=== PATIENT | male | born 1955 | race Caucasian/White ===

== ENCOUNTER 2016-12-14 11:43 | Inpatient (IN) | payer OTHER ==
[2016-12-14] VITALS (357 sets, daily range): BP systolic 157–174; BP diastolic 104–110; PULSE 77–93; TEMP 97.7–98.4; O2SAT 86–98
[~2016-12-14] VITALS: Ht 167.6 cm; Wt 60.2 kg
[~2016-12-14 11:43] MED LIST: ALEVE PO; BACTRIM DS 8001 TAB PO; BENADRYL25 M2 PO; BENADRYL25 MG PO; LEVAQUIN 5500 MG/TA1 PO; LIPITOR40 MG PO; NAPROSYN 2250 MG/TAB PO; NORCO 325 MG-51 TAB PO; NORCO 325 MG-7.1 TAB PO; PERCOCET 5/321 UDTAB PO; PREDNISONE10 MG PO; PRIL40 PO; TRAMADOL50 MG PO; ULTRAM 50MG TAB50 MG PO; VALIUM 5MG T5 MG/TAB PO; VITAMIN C500 MG PO
[2016-12-14 11:57] LABS: BASO # 0.1 (0.0-0.2); BASO % 0.8 % (0.0-2.0); EOS # 0.8 (0.0-0.7); EOS % 9.5 % (0-4.0); GRAN # 5.3 (1.4-6.5); GRAN % 62.4 % (42.2-75.2); HEMATOCRIT 45.6 % (42.0-52.0); LYMPH # 1.4 (1.2-3.4); LYMPH % 16.3 % (20.0-51.0); MEAN CELL VOLUME 95 fl (80.0-100.0); MEAN CORPUSCULAR HEMOGLOBIN 31 pg (27.0-31.0); MEAN CORPUSCULAR HGB CONC 33 g/dl (33.0-37.0); MEAN PLATELET VOLUME 9.3 fl (7.4-10.4); MONO # 0.9 (0.1-0.6); MONO % 10.8 % (1.7-9.3); PLATELET COUNT 250 K/mm3 (130-400); RED BLOOD COUNT 4.81 M/mm3 (4.20-5.60); REDCELL DISTRIBUTION WIDTH-CV 13.5 % (11.5-14.5); WHITE BLOOD COUNT 8.5 K/mm3 (4.8-10.8)
[2016-12-14 12:01] LABS: INR 1.1 (0.8-3.0); PROTHROMBIN TIME 12.2 SECONDS (9.7-12.8)
[2016-12-14 12:23] LABS: ADJUSTED CALCIUM 9.5 mg/dL (8.4-10.2); ALBUMIN 3.8 gm/dL (3.5-5.0); BILIRUBIN,TOTAL 0.9 mg/dL (0.0-1.0); C-REACTIVE PROTEIN 0.8 mg/dL (0.0-0.9); CALCIUM 9.3 mg/dL (8.4-10.2); CREATININE, serum 1.78 mg/dL (0.66-1.25); POTASSIUM 4.4 mmol/L (3.4-5.0); TOTAL PROTEIN 7.1 gm/dL (6.4-8.2)
[2016-12-14] MEDS ORDERED: ALEVE 220MG220 MG PO ×2 (13:34→18:21)
[2016-12-14] MEDS ORDERED: BENADRYL25 M2 PO ×2 (13:34→18:22)
[2016-12-14] MEDS ORDERED: VITAMIN C500 MG PO (13:35)
[2016-12-14] MEDS ORDERED: PRILOSEC10 MG PO (13:36)
[2016-12-14] MEDS ORDERED: [UNRECOGNIZED DRUG - OTHER] PO (17:34)
[2016-12-14] MEDS ORDERED: PRILOSEC 20MG20 MG PO (17:36)
[2016-12-14] MEDS ORDERED: [UNRECOGNIZED DRUG - OTHER] PO (17:36)
[2016-12-14] MEDS ORDERED: CEPHALEXIN500 M1 PO (17:40)
[2016-12-14] MEDS ORDERED: NORCO 325 MG-7.1 TAB PO (17:43)
[2016-12-14] MEDS ORDERED: PREDNISONE20 MG PO (17:45)
[2016-12-14] MEDS ORDERED: ULTRAM 50MG TAB50 MG PO (18:19)
[2016-12-14] MEDS ORDERED: [UNRECOGNIZED DRUG - REMARK] (18:28)
[2016-12-14 19:58] LABS: PH 5 (5-8); SQUAMOUS EPITHELIAL None Seen /hpf; URINE APPEARANCE Clear; URINE BACTERIA None Seen /hpf; URINE BILIRUBIN Negative (NEGATIVE); URINE BLOOD Negative (NEGATIVE); URINE COLOR Yellow; URINE GLUCOSE Negative (NEGATIVE); URINE KETONE Negative (NEGATIVE); URINE RBC 0-2 /hpf; URINE UROBILINOGEN Negative (NEGATIVE)
[2016-12-15] VITALS (24 sets, daily range): BP systolic 131–168; BP diastolic 79–115; PULSE 65–84; TEMP 97.6–98.2; O2SAT 93–99
[2016-12-15 05:55] LABS: HEMATOCRIT 42.3 % (42.0-52.0); HEMOGLOBIN 13.8 g/dl (13.5-18.0); MEAN CELL VOLUME 96 fl (80.0-100.0); MEAN CORPUSCULAR HEMOGLOBIN 31 pg (27.0-31.0); MEAN CORPUSCULAR HGB CONC 33 g/dl (33.0-37.0); MEAN PLATELET VOLUME 9.6 fl (7.4-10.4); PLATELET COUNT 237 K/mm3 (130-400); RED BLOOD COUNT 4.41 M/mm3 (4.20-5.60); REDCELL DISTRIBUTION WIDTH-CV 13.4 % (11.5-14.5); WHITE BLOOD COUNT 9.4 K/mm3 (4.8-10.8)
[2016-12-15 06:10] LABS: CALCIUM 8.7 mg/dL (8.4-10.2); CREATININE, serum 1.49 mg/dL (0.66-1.25)
[2016-12-16 03:39] VITALS: BP 125/69; PULSE 81; TEMP 99
[2016-12-16 07:31] LABS: BASO # 0.1 (0.0-0.2); BASO % 0.9 % (0.0-2.0); EOS # 0.7 (0.0-0.7); EOS % 8.2 % (0-4.0); GRAN # 5.6 (1.4-6.5); GRAN % 68.3 % (42.2-75.2); HEMATOCRIT 43.1 % (42.0-52.0); HEMOGLOBIN 13.9 g/dl (13.5-18.0); LYMPH % 11.7 % (20.0-51.0); MEAN CELL VOLUME 96 fl (80.0-100.0); MEAN CORPUSCULAR HEMOGLOBIN 31 pg (27.0-31.0); MEAN CORPUSCULAR HGB CONC 32 g/dl (33.0-37.0); MEAN PLATELET VOLUME 10.1 fl (7.4-10.4); MONO # 0.9 (0.1-0.6); MONO % 10.7 % (1.7-9.3); PLATELET COUNT 245 K/mm3 (130-400); RED BLOOD COUNT 4.49 M/mm3 (4.20-5.60); REDCELL DISTRIBUTION WIDTH-CV 13.6 % (11.5-14.5); WHITE BLOOD COUNT 8.2 K/mm3 (4.8-10.8)
[2016-12-16 07:39] LABS: CALCIUM 8.9 mg/dL (8.4-10.2); CREATININE, serum 1.65 mg/dL (0.66-1.25); POTASSIUM 3.9 mmol/L (3.4-5.0)
[2016-12-16 07:43] VITALS: BP 137/96; PULSE 77; TEMP 98.2
[2016-12-16 11:18] VITALS: BP 134/88; PULSE 65; TEMP 97.8
[2016-12-16 11:58] VITALS: BP 146/82; PULSE 78; TEMP 98.3
[2016-12-16] MEDS ORDERED: LIPITOR20 MG PO (14:00)
[2016-12-16] MEDS ORDERED: NICODERM C21 MG/PATC TD (14:00)
[2016-12-16] MEDS ORDERED: ZESTRIL2.5 MG PO (14:01)
[2016-12-16] MEDS ORDERED: ASPIRIN 81M81 MG/TA2 PO (14:01)
[2016-12-16] MEDS ORDERED: ULTRAM 50MG TAB50 MG PO (14:02)
[2016-12-16] MEDS ORDERED: TYLENOL 325MG325 MG PO (14:03)
[2016-12-16 16:18] VITALS: BP 152/87; PULSE 83; TEMP 98.5
[2016-12-16 20:05] VITALS: BP 152/85; PULSE 90; TEMP 98.1
[2016-12-17 00:03] VITALS: BP 154/91; PULSE 89; TEMP 98.2
[2016-12-17 02:58] VITALS: BP 137/88; PULSE 77; TEMP 98.3
[2016-12-17 07:24] VITALS: BP 140/79; PULSE 74; TEMP 98.1
[2016-12-17 22:30] LABS: HOMOCYSTEINE 12.5 umol/L (5.5-16.2)
== END 2016-12-17 10:30 | DRG 65 ==
LOC: COL.ER 11:43 → MEDICAL 12:29 → ICU 12:29 → IMCU 22:16 → MEDICAL 12-15 11:07
PROVIDERS: Family Medicine; Internal Medicine; Psychiatry & Neurology Neurology
DX: I63.9 Cerebral infarction, unspecified (principal); G81.91 Hemiplegia, unspecified affecting right dominant side; N17.9 Acute kidney failure, unspecified; I69.322 Dysarthria following cerebral infarction; Z66 Do not resuscitate; I12.9 Hypertensive chronic kidney disease with stage 1 through stage 4 chronic kidney disease, or unspecified chronic kidney disease; N18.3 Chronic kidney disease, stage 3 (moderate); F17.210 Nicotine dependence, cigarettes, uncomplicated; E78.5 Hyperlipidemia, unspecified; Z85.47 Personal history of malignant neoplasm of testis; Z82.3 Family history of stroke; I69.392 Facial weakness following cerebral infarction
CPT/HCPCS: 99223-AI; 99233-AI; J1170; J1644; J7030

== ENCOUNTER 2016-12-16 15:27 | Inpatient (IN) | payer OTHER ==
[~2016-12-16] VITALS: Ht 167.6 cm; Wt 61.6 kg
[~2016-12-16 15:27] MED LIST changes: +ALEVE 220MG220 MG PO; +ASPIRIN 81M81 MG/TA2 PO; +CEPHALEXIN500 M1 PO; +LIPITOR20 MG PO; +NICODERM C21 MG/PATC TD; +PREDNISONE20 MG PO; +PRILOSEC 20MG20 MG PO; +PRILOSEC10 MG PO; +TYLENOL 325MG325 MG PO; +ZESTRIL2.5 MG PO; +[UNRECOGNIZED DRUG - OTHER] PO; +[UNRECOGNIZED DRUG - OTHER] PO; +[UNRECOGNIZED DRUG - REMARK]
[2016-12-17 10:55] VITALS: BP 139/54; PULSE 80; TEMP 99.1
[2016-12-17 18:09] VITALS: BP 137/42; PULSE 55; TEMP 99.3
[2016-12-17 18:11] VITALS: BP 131/74; PULSE 91; TEMP 99.3
[2016-12-18 03:24] VITALS: BP 119/69; PULSE 92; TEMP 98.7
[2016-12-18 11:34] LABS: CALCIUM 9.7 mg/dL (8.4-10.2); CREATININE, serum 2.27 mg/dL (0.66-1.25); POTASSIUM 4.3 mmol/L (3.4-5.0)
[2016-12-18 16:44] VITALS: BP 135/86; PULSE 88; TEMP 99.1
[2016-12-19 03:41] VITALS: BP 138/85; PULSE 94; TEMP 98.6
[2016-12-19 08:55] LABS: CALCIUM 9.1 mg/dL (8.4-10.2); CREATININE, serum 1.99 mg/dL (0.66-1.25); MAGNESIUM 1.8 mg/dL (1.6-2.3); POTASSIUM 4.1 mmol/L (3.4-5.0)
[2016-12-19 18:13] VITALS: BP 157/94; PULSE 81; TEMP 99
[2016-12-19 23:22] VITALS: BP 168/101; PULSE 86
[2016-12-20 03:31] VITALS: BP 152/94; PULSE 86; TEMP 98.6
[2016-12-20 11:49] LABS: CREATININE, serum 1.77 mg/dL (0.66-1.25)
[2016-12-20 16:45] VITALS: BP 160/91; PULSE 82; TEMP 98.5
[2016-12-21 04:37] VITALS: BP 150/92; PULSE 69; TEMP 98.5
[2016-12-21 16:59] VITALS: BP 141/86; PULSE 69; TEMP 97.7
[2016-12-22 04:33] VITALS: BP 140/78; PULSE 69; TEMP 98.1
[2016-12-22 08:44] LABS: CREATININE, serum 1.77 mg/dL (0.66-1.25); MAGNESIUM 1.6 mg/dL (1.6-2.3); POTASSIUM 4.1 mmol/L (3.4-5.0)
[2016-12-22 16:45] VITALS: BP 162/96; PULSE 75; TEMP 97.5
[2016-12-23 06:30] VITALS: BP 127/80; PULSE 85; TEMP 99.1
[2016-12-23 16:50] VITALS: BP 148/93; PULSE 77; TEMP 98.3
[2016-12-24 04:04] VITALS: BP 158/97; PULSE 89; TEMP 97.9
[2016-12-24 16:15] VITALS: BP 137/86; PULSE 94; TEMP 98.5
[2016-12-25 04:32] VITALS: BP 161/86; PULSE 96; TEMP 98.3
[2016-12-25 07:17] VITALS: BP 161/101; PULSE 77
[2016-12-25 07:25] VITALS: BP 147/101
[2016-12-25 07:52] VITALS: BP 143/87
[2016-12-25 16:43] VITALS: BP 153/94; PULSE 76; TEMP 97.8
[2016-12-26 04:12] VITALS: BP 154/96; PULSE 76; TEMP 98.1
[2016-12-26 07:43] LABS: CALCIUM 9.7 mg/dL (8.4-10.2); CREATININE, serum 1.88 mg/dL (0.66-1.25); MAGNESIUM 1.9 mg/dL (1.6-2.3)
[2016-12-26 17:05] VITALS: BP 130/78; PULSE 96; TEMP 98
[2016-12-27 05:07] VITALS: BP 153/52; PULSE 80; TEMP 98.2
[2016-12-27 18:14] VITALS: BP 127/79; PULSE 112; TEMP 99
[2016-12-28 05:13] VITALS: BP 140/80; PULSE 96; TEMP 98
[2016-12-28 17:55] VITALS: BP 163/71; PULSE 106; TEMP 98
[2016-12-29 05:16] VITALS: BP 133/84; PULSE 86; TEMP 97.8
[2016-12-29 07:33] LABS: CALCIUM 9.4 mg/dL (8.4-10.2); CREATININE, serum 2.24 mg/dL (0.66-1.25)
[2016-12-29 17:44] VITALS: BP 137/88; PULSE 98; TEMP 99.2
[2016-12-30 04:18] VITALS: BP 149/89; PULSE 73; TEMP 97.9
[2016-12-30 18:00] VITALS: BP 147/78; PULSE 88; TEMP 98.3
[2016-12-31 03:45] VITALS: BP 146/83; PULSE 83; TEMP 97.6
[2016-12-31 07:37] LABS: CALCIUM 9.3 mg/dL (8.4-10.2); CREATININE, serum 2.2 mg/dL (0.66-1.25); POTASSIUM 4.6 mmol/L (3.4-5.0)
[2016-12-31 18:00] VITALS: BP 152/90; PULSE 94; TEMP 98.9
[2017-01-01 03:35] VITALS: BP 131/83; PULSE 95; TEMP 98
[2017-01-01 16:24] VITALS: BP 153/98; PULSE 81; TEMP 99.1
[2017-01-02 04:41] VITALS: BP 130/76; PULSE 90; TEMP 98.4
[2017-01-02 07:06] LABS: CALCIUM 9.3 mg/dL (8.4-10.2); CREATININE, serum 2.11 mg/dL (0.66-1.25); POTASSIUM 4.8 mmol/L (3.4-5.0)
[2017-01-02] MEDS ORDERED: NEURONTIN400 MG/CAP PO (12:47)
[2017-01-02] MEDS ORDERED: WELLBUTRIN XL150 MG PO (12:48)
[2017-01-02] MEDS ORDERED: PREDNISONE 2.52.5 MG PO (12:48)
[2017-01-02] MEDS ORDERED: NYSTATIN POWDER15 GM TOP (12:50)
[2017-01-02] MEDS ORDERED: DULCOLAX STOOL100 MG PO (12:50)
[2017-01-02] MEDS ORDERED: ZESTRIL 10MG10 MG PO (13:13)
== END 2017-01-02 15:37 | disposition home or self-care (01) | DRG 57 ==
PROVIDERS: Internal Medicine
DX: I69.351 Hemiplegia and hemiparesis following cerebral infarction affecting right dominant side (principal); N17.9 Acute kidney failure, unspecified; F33.1 Major depressive disorder, recurrent, moderate; I69.322 Dysarthria following cerebral infarction; I69.398 Other sequelae of cerebral infarction; H53.2 Diplopia; I12.9 Hypertensive chronic kidney disease with stage 1 through stage 4 chronic kidney disease, or unspecified chronic kidney disease; N18.9 Chronic kidney disease, unspecified; F17.210 Nicotine dependence, cigarettes, uncomplicated
CPT/HCPCS: 99222-AI; 99232-AI; 99239; J1644; J7030; J7512

== ENCOUNTER 2017-04-03 14:15 | Outpatient (RCR) | payer OTHER ==
[~2017-04-03 14:15] MED LIST changes: +DULCOLAX STOOL100 MG PO; +NEURONTIN400 MG/CAP PO; +NYSTATIN POWDER15 GM TOP; +PREDNISONE 2.52.5 MG PO; +WELLBUTRIN XL150 MG PO; +ZESTRIL 10MG10 MG PO
== END 2017-04-05 | disposition still patient (30) ==
LOC: MKS.ESL.OT
DX: I69.351 Hemiplegia and hemiparesis following cerebral infarction affecting right dominant side (principal); I10 Essential (primary) hypertension; I69.822 Dysarthria following other cerebrovascular disease

== ENCOUNTER 2018-06-11 20:32 | Emergency (ER) | payer SELFPAY ==
[~2018-06-11] VITALS: Ht 162.6 cm; Wt 65.9 kg
[2018-06-11 21:22] LABS: BASO % 0.1 % (0.0-2.0); EOS % 0.1 % (0-4.0); GRAN # 10.9 (1.4-6.5); GRAN % 84.8 % (42.2-75.2); LYMPH # 0.5 (1.2-3.4); MEAN CELL VOLUME 105 fl (80.0-100.0); MEAN CORPUSCULAR HGB CONC 30 g/dl (33.0-37.0); MEAN PLATELET VOLUME 10.3 fl (7.4-10.4); MONO # 1.4 (0.1-0.6); MONO % 10.5 % (1.7-9.3); PLATELET COUNT 267 K/mm3 (130-400); RED BLOOD COUNT 1.51 M/mm3 (4.20-5.60); REDCELL DISTRIBUTION WIDTH-CV 17.3 % (11.5-14.5)
[2018-06-11 21:25] LABS: INR 1.1 (0.8-3.0)
[2018-06-11 21:27] LABS: HEMATOCRIT 15.8 % (42.0-52.0); MEAN CORPUSCULAR HEMOGLOBIN 31 pg (27.0-31.0)
[2018-06-11 21:28] LABS: HEMOGLOBIN 4.7 g/dl (13.5-18.0); PARTIAL THROMBOPLASTIN TIME 28.5 SECONDS (26.0-37.0)
[2018-06-11 21:33] LABS: ALANINE AMINOTRANSFERASE 29 U/L (21-72); ALBUMIN 3.1 gm/dL (3.5-5.0); ALKALINE PHOSPHATASE 49 U/L (50-136); ANION GAP 15 mmol/L (7-16); AST,SGOT 26 U/L (15-37); BILIRUBIN,TOTAL 0.6 mg/dL (0.0-1.0); BLOOD UREA NITROGEN 105 mg/dL (9-20); C-REACTIVE PROTEIN 3.7 mg/dL (0.0-0.9); CALCIUM 7.7 mg/dL (8.4-10.2); CHLORIDE 112 mmol/L (98-107); GLUCOSE 92 mg/dL (74-106); SODIUM 141 mmol/L (137-145); TOTAL PROTEIN 5.7 gm/dL (6.4-8.2)
[2018-06-11 21:37] LABS: ALCOHOL(ethanol),MEDICAL < 10 mg/dL
[2018-06-11 21:39] LABS: CARBON DIOXIDE 14 mmol/L (22-30); CREATININE, serum 8.91 mg/dL (0.66-1.25)
[2018-06-11] MEDS ORDERED: ZESTRIL 10MG10 MG PO (21:43)
[2018-06-11] MEDS ORDERED: TENORMIN 5050 MG/TAB PO (21:44)
[2018-06-11] MEDS ORDERED: ULTRAM 50MG TAB50 MG PO (21:45)
[2018-06-11] MEDS ORDERED: ATARAX50 MG PO (21:46)
[2018-06-11] MEDS ORDERED: NEURONTIN400 MG/CAP PO (21:47)
[2018-06-11] MEDS ORDERED: PREDNISONE10 MG PO (21:47)
[2018-06-11] MEDS ORDERED: IMODIUM 2MG CAPS2 MG PO (21:48)
[2018-06-11] MEDS ORDERED: MEVACOR40 MG PO (21:48)
[2018-06-11] MEDS ORDERED: ALEVE 220MG220 MG PO (21:49)
[2018-06-11 22:08] VITALS: BP 80/53; PULSE 86; TEMP 97.2
[2018-06-11 22:24] VITALS: BP 79/68; PULSE 91; TEMP 97.1
[2018-06-11 22:39] VITALS: BP 96/55; PULSE 96; TEMP 97.2
[2018-06-11 22:54] VITALS: BP 88/57; PULSE 98; TEMP 97.4
[2018-06-11 23:13] VITALS: BP 87/61; PULSE 100; TEMP 97
[2018-06-11 23:39] VITALS: BP 102/68; PULSE 99; TEMP 97.2
[2018-06-12 00:04] VITALS: BP 115/63; PULSE 89; TEMP 97.2
[2018-06-12 00:24] VITALS: BP 115/64; PULSE 94
== END 2018-06-12 00:24 | disposition short-term general hospital (02) ==
LOC: COL.ER 20:32
PROVIDERS: Emergency Medicine
DX: K92.2 Gastrointestinal hemorrhage, unspecified (principal); N19 Unspecified kidney failure; D64.9 Anemia, unspecified; I10 Essential (primary) hypertension; E87.5 Hyperkalemia; F17.210 Nicotine dependence, cigarettes, uncomplicated; Z86.73 Personal history of transient ischemic attack (TIA), and cerebral infarction without residual deficits
CPT/HCPCS: C9113; J0610; J1720; J1815; J7030; P9016